=== PATIENT | female | born 1945 | race Caucasian/White ===

== ENCOUNTER 2016-10-24 16:41 | Emergency (ER) | payer MEDICARE, MEDICAID ==
--- NOTE | 2016-10-24 16:59 | ED Physician Chart ---
Chief Complaint/HPI - Patient Information Date Seen:: 10/24/16 Time Seen:: 16:49 Chief Complaint:: weakness History of Present Illness:: 71-year-old female from assisted living facility with acute, constant, moderate to severe, generalized weakness. Has associated mechanical fall about 2 hours prior to arrival to the ER. Unknown if she hit her head. Limited history as patient has underlying dementia and is a poor historian History provided by EMS Allergies:: Allergies Allergy/AdvReac Type Severity Reaction Status Date / Time MDX SULFA (sulfonamide) Allergy Verified 02/10/15 14:28 [SULFA (sulfonamide)] Historian:: EMS Review:: Nurse's Note Reviewed, EMS run form Reviewed Review of Systems - Review of Systems Other: Complete system review otherwise unremarkable except as noted in history of present illness. Past Medical History - Past Medical History Past Medical History: DM, Asthma/COPD, Dyslipidemia, Seizures, Dementia Family History: None Social History: Non Smoker, No Alcohol, No Drug Use, Care Facility Surgical History: None Psychiatricy History: None Medication: None Family Medical History - Family Member Mother History Unknown: Yes Physical Exam - Physical Examination Other:: INITIAL VITAL SIGNS: Reviewed by me GENERAL: Alert and interactive but demented. No acute distress HEAD: Head is normocephalic and atraumatic EYES: EOMI. PERRL. No scleral icterus. No conjunctival injection ENT: Moist mucous membranes. NECK: Supple. No masses. Full range of motion RESPIRATORY: No tachypnea. Clear breath sounds bilaterally. No wheezing, rales, or rhonchi CV: Regular rate and rhythm. No murmurs, rubs, or gallops ABDOMEN: Soft, non-distended, non-tender. No guarding. No rebound. No masses. EXTREMITIES: No deformity. No cyanosis. No edema. SKIN: Warm and dry. No obvious rashes. NEUROLOGIC: Alert and oriented. Face is symmetric. Speech is normal. Moves all extremities equally. Motor and sensory distally intact. Labs/Radiology/EKG Results - Lab Results Results: Lab Results 10/24/16 10/24/16 10/24/16 Range/Units 17:10 17:10 17:10 WBC 6.4 (4.8-10.8) Th/cmm RBC 4.22 (3.80-5.20) Mil/cmm Hgb 13.0 D (11.7-16.1) gm/dL Hct 38.3 D (35.0-45.0) % MCV 90.7 (81-100) fl MCH 30.8 (27.0-31.0) pg MCHC Differential 34.0 (28.0-36.0) pg RDW 12.3 (11.5-20.0) % Plt Count 173 (150-400) Th/cmm MPV 8.5 fl Neutrophils % 62.6 (40.0-80.0) % Lymphocytes % 27.5 (20.0-50.0) % Monocytes % 8.9 (2.0-10.0) % Eosinophils % 0.7 (0.0-5.0) % Basophils % 0.3 (0.0-2.0) % Sodium 136 (136-145) mEq/L Potassium 5.2 H (3.5-5.1) mEq/L Chloride 104 (98-107) mEq/L Carbon Dioxide 28.5 (21.0-31.0) mEq/L Anion Gap 8.7 (7.0-16.0) BUN 36 H (7-25) mg/dL Creatinine 1.2 (0.6-1.2) mg/dL Est GFR ( Amer) TNP Est GFR (Non-Af Amer) TNP BUN/Creatinine Ratio 30.0 Glucose 109 H (70-105) mg/dL Whole Bld Lactic Acid 0.72 (0.60-1.99) mmol/L Calcium 10.2 (8.6-10.3) mg/dL Total Bilirubin 0.5 (0.3-1.0) mg/dL AST 16 (13-39) U/L ALT 15 (7-52) U/L Alkaline Phosphatase 70 (34-104) U/L Creatine Kinase 55 (30-223) U/L Total Protein 7.5 (6.0-8.3) gm/dL Albumin 4.3 (3.7-5.3) gm/dL Globulin 3.2 gm/dL Albumin/Globulin Ratio 1.3 (1.0-1.8) - Radiology Results Results: Single AP VIEW Portable Chest X-ray was interpreted independently and contemporaneously by Tiffany Jackman MD: No cardiomegaly Normal mediastinum Chronic chronic changes bilateral lower lobes No pneumothorax No soft tissue or bony abnormalities CT head without contrast per radiology NAD - EKG Interpretations Comments:: 12-lead EKG Interpretation by Tiffany Jackman MD: Normal Sinus Rhythm with ventricular rate of 66 beats per minute Normal axis Normal intervals No acute ST or T wave changes. No obvious STEMI ED Septic Shock - . Is Septic Shock (SBP<90, OR Lactate>4 mmol\L) present?: No Reassessment (Disposition) - Reassessment Reassessment:: Blood pressure was noted to be elevated over 120/80. There were no signs of hypertension. Discussed the findings with the patient and recommended that the patient follow up with the primary care physician regarding the elevated blood pressure. The patient had mechanical fall generalized weakness. She appears to be slightly dehydrated. Received IV hydration. Symptoms did improve. Imaging essentially unremarkable. Discussed case with admitting physician. After long conversation a good understanding vitamin physician, patient will be discharged back to her assisted living facility where she can follow up with her primary care physician within one to 2 days. Patient appears to understand and agree with the plan. Patient does have acute UTI most likely this is the cause of the weakness. Discussed with primary care physician who advised to prescribed Cipro 250 mg by mouth twice a day 5 days. Gave her first dose here in the ER. Daughter/DPOA now at bedside and she will drive the patient back to nursing facility. Reassessment Condition:: Improved - Diagnosis Diagnosis:: Acute Generalized weakness due to acute urinary tract infection with hematuria Acute Mechanical fall Acute Closed head injury Acute Dehydration, moderate Elevated blood pressure without diagnosis hypertension that - Aftercare/Follow up Instructions Aftercare/Follow-Up Instructions:: Counseled pt regarding lab results/diagnosis & need follow up, Refer to Discharge Instructions - Patient Disposition Discharge/Transfer:: Home Time:: 19:20 Condition at Disposition:: Improved ED Discharge Plan - Patient Disposition Admit/Discharge/Transfer: PT DISCHARGED HOME Condition at Disposition: Improved Instructions: Urinary Tract Infection
[2016-10-24 17:42] LABS: % BASOPHILS 0.3 % (0.0-2.0); % EOSINOPHILS 0.7 % (0.0-5.0); % LYMPHOCYTES 27.5 % (20.0-50.0); % MONOCYTES 8.9 % (2.0-10.0); % NEUTROPHILS 62.6 % (40.0-80.0); MEAN CELL VOLUME 90.7 fl (81-100); MEAN CORPUSCULAR HEMOGLOBIN 30.8 pg (27.0-31.0); MEAN PLATELET VOLUME 8.5 fl; PLATELET COUNT 173 Th/cmm (150-400); RED BLOOD COUNT 4.22 Mil/cmm (3.80-5.20); RED CELL DISTRIBUTION WIDTH 12.3 % (11.5-20.0); WHITE BLOOD COUNT 6.4 Th/cmm (4.8-10.8)
[2016-10-24 17:44] LABS: HEMATOCRIT 38.3 % (35.0-45.0)
[2016-10-24 17:49] LABS: INR 1.02 (0.5-1.4); PROTHROMBIN TIME (TEST) 10.6 SECONDS (9.5-11.5)
[2016-10-24] MEDS: Sodium Chloride 0.9% 1,000 ML IV ONE (17:54)
[2016-10-24 17:56] LABS: ALB/GLOB RATIO 1.3 (1.0-1.8); ALKALINE PHOSPHATASE 70 U/L (34-104); ANION GAP 8.7 (7.0-16.0); BILIRUBIN,TOTAL 0.5 mg/dL (0.3-1.0); BUN - UREA NITROGEN 36 mg/dL (7-25); CALCIUM SERUM 10.2 mg/dL (8.6-10.3); CARBON DIOXIDE 28.5 mEq/L (21.0-31.0); CHLORIDE 104 mEq/L (98-107); CREATININE - SERUM 1.2 mg/dL (0.6-1.2); GLUCOSE 109 mg/dL (70-105); POTASSIUM SERUM 5.2 mEq/L (3.5-5.1); SGOT 16 U/L (13-39); SGPT/ALT 15 U/L (7-52); SODIUM SERUM 136 mEq/L (136-145)
[2016-10-24 19:12] LABS: URINE COLOR YELLOW
[2016-10-24 19:13] LABS: URINE BILIRUBIN NEGATIVE (NEGATIVE); URINE BLOOD MODERATE (NEGATIVE); URINE GLUCOSE (UA) NEGATIVE (NEGATIVE); URINE KETONE NEGATIVE (NEGATIVE); URINE PH 5.5; URINE PROTEIN 30 mg/dL (NEGATIVE); URINE UROBILINOGEN 0.2 E.U./dL (0.2 - 1.0)
[2016-10-24 19:16] LABS: URINE EPITHELIAL CELLS FEW /lpf (FEW); URINE WBC >100 /hpf (0-5)
[2016-10-24 19:17] LABS: URINE BACTERIA MODERATE /hpf (NONE SEEN)
--- NOTE | 2016-10-25 09:22 | Diagnostic Imaging Report ---
CHEST X-RAY: AP view INDICATION: pain COMPARISON: Chest x-ray 02/10/2015 FINDINGS: Chronic interstitial lung changes are seen in the focal consolidation or effusions. Heart size normal. Atherosclerosis is noted. Degenerative changes of the spine are noted. There is evidence of old fracture of the left humerus. IMPRESSION: Chronic lung changes of probable COPD. No focal consolidation identified. Atherosclerotic vascular disease.
--- NOTE | 2016-10-25 10:38 | Diagnostic Imaging Report ---
Head CT without intravenous contrast Indication: Fall, headache Comparison: Head CT on 04/03/2015 Technique: Axial images were obtained from the vertex to the skull base without IV contrast. Coronal reconstructions were made. Total DLP: 551, CTDI29 FINDINGS: Images of the brain obtained without contrast demonstrate no evidence of an acute hemorrhage. Mild atrophy is noted. Diffuse white matter disease is seen with redemonstration of multifocal lacunar infarcts of the bilateral basal ganglia regions as seen on previous examination. The ventricles and basal cisterns are patent. No mass effect or midline shift. Atherosclerotic vascular disease is noted. There is no evidence of a skull fracture or focal soft tissue swelling. Old nasal fractures are again noted. There is mucosal thickening of the paranasal sinuses. IMPRESSION: No evidence of an acute intracranial hemorrhage. Diffuse white matter disease and multiple chronic appearing bilateral lacunar infarcts as seen on prior exam. Mild atrophy. Atherosclerotic vascular disease. Old nasal fractures as seen on prior exam.
== END 2016-10-24 19:35 | disposition home or self-care (01) ==
LOC: ER 16:41
DX: S09.90XA Unspecified injury of head, initial encounter (principal); E86.0 Dehydration; R03.0 Elevated blood-pressure reading, without diagnosis of hypertension; N39.0 Urinary tract infection, site not specified; R31.9 Hematuria, unspecified; J45.909 Unspecified asthma, uncomplicated; J44.9 Chronic obstructive pulmonary disease, unspecified; E78.5 Hyperlipidemia, unspecified; E11.9 Type 2 diabetes mellitus without complications; Z88.2 Allergy status to sulfonamides; W19.XXXA Unspecified fall, initial encounter; Y93.89 Activity, other specified; Y92.89 Other specified places as the place of occurrence of the external cause; Y99.8 Other external cause status
CPT/HCPCS: 36415-UA; 70450-TC; 71010-TC; 80053-TC; 81001-TC; 82550-TC; 83605; 85025-TC; 85610-TC; 85730-TC; 87086-90; 93005; J7030; Z7610

== ENCOUNTER 2017-05-23 16:09 | Inpatient (IN) | payer MEDICARE, MEDICAID ==
--- NOTE | 2017-05-23 16:42 | ED Physician Chart ---
ED Chief Complaint/HPI - Patient Information Date Seen:: 05/23/17 Time Seen:: 16:25 Chief Complaint:: Syncope History of Present Illness:: onset x 3 hours of syncope resulting in a fall; no injuries; + weakness; no report of H/As, neck pain, C/P, SOB, cough, Abd. Pain, A/N/V/D/C, fever, chills , or urinary s/s Allergies:: Allergies Allergy/AdvReac Type Severity Reaction Status Date / Time Sulfa (Sulfonamide Allergy Verified 10/24/16 16:58 Antibiotics) Vitals:: Vital Signs - 8 hr 05/23/17 16:26 Temp 97.5 F HR 70 RR 18 BP 138/63 O2 Sat % 93 Historian:: Patient, EMS Review:: Nurse's Note Reviewed, EMS run form Reviewed, Transfer documents Reviewed ED Review of Systems - Review of Systems General/Constitutional: Fever, No chills, No weight loss, Weakness, No diaphoresis, No edema, No loss of appetite Skin: No skin lesions, No rash, No bruising Head: No headache, No light-headedness Eyes: No loss of vision, No pain, No diplopia ENT: No earache, No nasal drainage, No sore throat, No tinnitus Neck: No neck pain, No swelling, No thyromegaly, No stiffness, No mass noted Cardio Vascular: No chest pain, No palpitations, No PND, No orthopnea, No edema Pulmonary: SOB, Cough, No sputum, Wheezing GI: No nausea, No vomiting, No diarrhea, No pain, No melena, No hematochezia, No constipation, No hematemesis G/U: No dysuria, No frequency, No hematuria [employer] Supervisor: No vaginal discharge, No abnormal vaginal bleed, No contraction Musculoskeletal: No bone or joint pain, No back pain, No muscle pain Endocrine: Polyuria, Polydipsia Psychiatric: No prior psych history, No depression, No anxiety, No suicidal ideation Hematopoietic: No bruising, No lymphadenopathy Allergic/Immuno: No urticaria, No angioedema Neurological: Syncope, No focal symptoms, Weakness, No paresthesia, No headache , Seizure, Dizziness, Confusion, Vertigo ED Past Medical History - Past Medical History Obtainable: Yes Past Medical History: HTN, DM, CAD, CHF, Dyslipidemia, Seizures Family History: Heart disease, Diabetes Melitus, HTN Social History: Non Smoker, No Alcohol, No Drug Use, Single, Care Facility Surgical History: None Psychiatricy History: Dementia Medication: Reviewed Family Medical History - Family Member Mother History Unknown: Yes Hx Family Cancer: No Hx Family Hypertension: No Hx Family Stroke: No Hx Family Diabetes: No Hx Family Dementia: No Hx Family AIDS: No Hx Family COPD: No Hx Family Psychiatric Problems: No ED Physical Exam - Physical Examination General/Constitutional: Awake, Well-developed, well-nourished, Alert, No distress, GCS 15, Non-toxic appearing, Ambulatory Head: Atraumatic Eyes: Lids, conjuctiva normal, PERRL, EOMI Skin: Nl inspection, No rash, No skin lesions, No ecchymosis, Well hydrated, No lymphadenopathy ENMT: External ears, nose nl, TM canals nl, Nasal exam nl, Lips, teeth, gums nl , Oropharynx nl, Tonsils nl Neck: Nontender, Full ROM w/o pain, No JVD, No nuchal rigidity, No bruit, No mass, No stridor Respiratory: Nl effort/Exclusion Other Respiratory comments:: Lungs: + Rales, Rhonchi, and Wheezes Cardio Vascular: RRR, No murmur, gallop, rubs, NL S1 S2 GI: No tenderness/rebounding/guarding, No organomegaly, No hernia, Normal BS's, Nondistended, No mass/bruits, No McBurney tenderness : No CVA tenderness Extremities: No tenderness or effusion, Full ROM, normal strength in all extremities, No edema, Normal digits & nails Neuro/Psych: Alert/oriented, DTR's symmetric, Normal sensory exam, Normal motor strength, Judgement/insight normal, Mood normal, Normal gait, No focal deficits Misc: Normal back, No paraspinal tenderness ED Labs/Radiology/EKG Results - Lab Results Comments:: Na+: 133; BUN: 23; U/A: + Leukocytes - Radiology Results Comments:: CXR: + Infiltrate - EKG Interpretations Rate & Rhythm: NSR Comments:: non-specific st-t changes ED Septic Shock - . Is Septic Shock (SBP<90, OR Lactate>4 mmol\L) present?: No - <6hrs of presentation: Vital Signs: Vital Signs - 8 hr 05/23/17 16:26 Temp 97.5 F HR 70 RR 18 BP 138/63 O2 Sat % 93 ED Reassessment (Disposition) - Reassessment Reassessment Condition:: Improved - Diagnosis Diagnosis:: Anemia; Sepsis; PNA; UTI; Hyponatremia; Dehydration; Syncope; S/P Fall - Aftercare/Follow up Instructions Aftercare/Follow-Up Instructions:: Counseled pt regarding lab results/diagnosis & need follow up, Counseled pt & family regarding lab results/diagnosis & need follow up - Patient Disposition Discharge/Transfer:: Acute Care w/in this hosp Accepting Physician:: Dr. White Time Called:: 1929 Time Responded:: 21:00 Admitted to:: Telemetry Spoke to:: Dr. White Admitting Medical Physician:: Dr. White Condition at Disposition:: Stable, Improved ED Discharge Plan - Patient Disposition Admit/Discharge/Transfer: Acute Care w/in this hosp
[2017-05-23] MEDS ORDERED: Levofloxacin 500mg/100mL 500 MG/100 ML BAG IV ONE ×2 (16:45→18:08)
[2017-05-23 17:06] LABS: % BASOPHILS 0.9 % (0.0-2.0); % EOSINOPHILS 1.2 % (0.0-5.0); % MONOCYTES 7.8 % (2.0-10.0); % NEUTROPHILS 60.1 % (40.0-80.0); HEMATOCRIT 34.7 % (41.0-60); HEMOGLOBIN 11.4 gm/dL (12-16); MEAN CELL VOLUME 95.6 fl (81-100); MEAN CORPUSCULAR HEMOGLOBIN 31.3 pg (27.0-31.0); MEAN CORPUSCULAR HGB CONC 32.7 pg (28.0-36.0); MEAN PLATELET VOLUME 7.9 fl; NEUTROPHILE ABSOLUTE 3.1 Th/cmm (1.8-8.0); RED BLOOD COUNT 3.64 Mil/cmm (3.80-5.20); RED CELL DISTRIBUTION WIDTH 14.4 % (11.5-20.0); WHITE BLOOD COUNT 5.2 Th/cmm (4.8-10.8)
[2017-05-23 17:07] LABS: PLATELET COUNT 226 Th/cmm (150-400)
[2017-05-23 17:33] LABS: ALB/GLOB RATIO 1.3 (1.0-1.8); ALKALINE PHOSPHATASE 77 U/L (34-104); ANION GAP 9.7 (7.0-16.0); BILIRUBIN,TOTAL 0.3 mg/dL (0.3-1.0); BUN - UREA NITROGEN 23 mg/dL (7-25); BUN/CREATININE RATIO 25.6; CALCIUM SERUM 9.3 mg/dL (8.6-10.3); CARBON DIOXIDE 26.6 mEq/L (21.0-31.0); CHLORIDE 101 mEq/L (98-107); CHOLESTEROL 156 mg/dL (<200); CREATININE - SERUM 0.9 mg/dL (0.6-1.2); GLUCOSE 134 mg/dL (70-105); POTASSIUM SERUM 4.3 mEq/L (3.5-5.1); SGOT 15 U/L (13-39); SGPT/ALT 8 U/L (7-52); SODIUM SERUM 133 mEq/L (136-145); TRIGLYCERIDES 199 mg/dL (<150)
[2017-05-23 17:49] LABS: INR 0.96 (0.5-1.4)
[2017-05-23 18:57] LABS: URINE BILIRUBIN NEGATIVE (NEGATIVE); URINE BLOOD TRACE (NEGATIVE); URINE GLUCOSE (UA) NEGATIVE (NEGATIVE); URINE KETONE NEGATIVE (NEGATIVE); URINE PH 5.5 (4.6 - 8.0); URINE PROTEIN NEGATIVE (NEGATIVE); URINE UROBILINOGEN 0.2 E.U./dL (0.2 - 1.0)
[2017-05-23 19:22] LABS: URINE COLOR YELLOW
[2017-05-23 19:23] LABS: URINE BACTERIA NONE SEEN /hpf (NONE SEEN); URINE EPITHELIAL CELLS FEW /lpf (FEW); URINE RBC 0-2 /hpf (0-5)
[2017-05-24 05:01] LABS: % EOSINOPHILS 1.9 % (0.0-5.0); % LYMPHOCYTES 31.9 % (20.0-50.0); % MONOCYTES 9.6 % (2.0-10.0); % NEUTROPHILS 55.6 % (40.0-80.0); HEMOGLOBIN 10.2 gm/dL (12-16); MEAN CELL VOLUME 94.2 fl (81-100); MEAN CORPUSCULAR HEMOGLOBIN 31.6 pg (27.0-31.0); MEAN CORPUSCULAR HGB CONC 33.5 pg (28.0-36.0); NEUTROPHILE ABSOLUTE 2.2 Th/cmm (1.8-8.0); PLATELET COUNT 213 Th/cmm (150-400); RED BLOOD COUNT 3.24 Mil/cmm (3.80-5.20); RED CELL DISTRIBUTION WIDTH 14.2 % (11.5-20.0)
[2017-05-24 05:07] LABS: HEMATOCRIT 30.5 % (41.0-60)
[2017-05-24 05:22] LABS: ALB/GLOB RATIO 1.4 (1.0-1.8); ALKALINE PHOSPHATASE 68 U/L (34-104); ANION GAP 8.7 (7.0-16.0); BILIRUBIN,TOTAL 0.3 mg/dL (0.3-1.0); BUN - UREA NITROGEN 20 mg/dL (7-25); CALCIUM SERUM 9.2 mg/dL (8.6-10.3); CARBON DIOXIDE 29.4 mEq/L (21.0-31.0); CHLORIDE 105 mEq/L (98-107); CREATININE - SERUM 0.8 mg/dL (0.6-1.2); GLUCOSE 102 mg/dL (70-105); MAGNESIUM 1.7 mg/dL (1.9-2.7); POTASSIUM SERUM 4.1 mEq/L (3.5-5.1); SGOT 12 U/L (13-39); SGPT/ALT 8 U/L (7-52); SODIUM SERUM 139 mEq/L (136-145)
[2017-05-24] MEDS: Sodium Chloride 0.9% 1,000 ML IV SCH (06:36)
[2017-05-24] MEDS: INSULIN ASPART SLIDING SCALE 100 UNITS/ML UNIT SUBQ SCH ×4 (06:50→21:08)
[2017-05-24] MEDS: Albuterol/Ipratropium Neb 3 ML AERS HHN SCH ×4 (07:10→19:58)
--- NOTE | 2017-05-24 07:32 | Diagnostic Imaging Report ---
CHEST X-RAY: AP view INDICATION: pain COMPARISON: 10/24/2016 FINDINGS: Chronic lung changes are seen. No focal consolidation or effusions. Heart size is normal. Atherosclerosis is noted. Degenerative changes of the spine are noted. Old left humeral fracture is noted. IMPRESSION: Chronic lung changes and possible COPD. No focal consolidation identified. Atherosclerotic vascular disease.
--- NOTE | 2017-05-24 07:46 | Diagnostic Imaging Report ---
Head CT without intravenous contrast Indication: Syncope Comparison: 10/24/2016 Technique: Axial images were obtained from the vertex to the skull base without IV contrast. Coronal reconstructions were made. Total DLP: 617, CTDI34 FINDINGS: Images of the brain obtained without contrast demonstrate no evidence of an acute hemorrhage. Atrophy is noted. Diffuse supratentorial white matter disease is noted. Low-attenuation changes of the right occipital region are noted with developing areas of encephalomalacia likely due to chronic appearing infarct in this region. The ventricles and basal cisterns are patent. Old bilateral basal ganglia infarcts are noted. No mass effect or midline shift. No evidence of a skull fracture or focal soft tissue swelling. Atherosclerosis is noted. The visualized paranasal sinuses are clear. IMPRESSION: No evidence of acute intracranial hemorrhage. Low attenuation changes of the right occipital region likely due to chronic infarct. Areas of encephalomalacia also seen in this region Bilateral lacunar basal ganglia infarcts. Diffuse supratentorial white matter disease which is nonspecific and may be due to chronic microvessel ischemia. Atrophy Atherosclerotic vascular disease.
--- NOTE | 2017-05-24 08:28 | Diagnostic Imaging Report ---
CHEST X-RAY: AP view INDICATION: Pneumonia COMPARISON: 05/23/2017 FINDINGS: Chronic lung changes are seen with no focal consolidation or pleural effusions. Heart size normal. Atherosclerosis is noted. Old left humeral fracture is noted. IMPRESSION: Chronic lung changes with no focal consolidation identified.
[2017-05-24] MEDS ORDERED: Non-Formulary Item 1 EA (Fluticasone/Salmeterol [Advair 250-50 Diskus] 1 PUFF) INH SCH (09:45)
[2017-05-24] MEDS ORDERED: Non-Formulary Item 1 EA (Cetirizine Hcl [Zyrtec] 10 MG) PO SCH (09:45)
[2017-05-24] MEDS: Ferrous Sulfate 325 MG TAB PO SCH ×2 (10:19→16:31)
[2017-05-24] MEDS ORDERED: Ipratropium Neb 0.5 mg/2.5 mL UD HHN SCH (11:00)
[2017-05-24] MEDS ORDERED: Probiotic Screen MC PRN (11:45)
--- NOTE | 2017-05-24 12:29 | History & Physical ---
ADMIT DATE: CHIEF COMPLAINT: Weakness, acute on chronic debility, failure to thrive. HISTORY OF PRESENT ILLNESS: A 71-year-old lady who resides at [facility] with history significant for advanced dementia, seizures, type 2 diabetes, history of CHF, peripheral vascular disease, neuropathy, hypercholesterolemia, chronic smoker, COPD, who has had multiple falls in the past, was evaluated by Dr. Griffiths yesterday and given her weakness and possible dehydration, was transferred to the ER last night. Pertinent findings on admission include sodium of 133 and UA suggestive of UTI. CT of the head showed no evidence of acute intracranial hemorrhage. There were changes on the right occipital region likely due to chronic infarct. Bilateral lacunar basal ganglia infarcts were noted. There is also diffuse supratentorial white matter disease and atrophy. Chest x- ray showed chronic lung changes with possible COPD, no evidence of focal consolidations. The patient has been admitted to the medical floor for further management and care. The patient is somewhat of a poor historian. She denies any cough, fever, chills, any headaches, or changes in vision. She does admit to some weakness, which is somewhat chronic and when I asked her about p.o. intake, she states that she is not fully eating the facility's food because she does not like it. PAST MEDICAL HISTORY: As noted above. PAST SURGICAL HISTORY: None. FAMILY HISTORY: Noncontributory to this admission. SOCIAL HISTORY: She is a smoker. She smokes about a pack a day and she has been doing that for about 30 years. No ETOH. She lives at [facility]. ALLERGIES: Allergic to Sulfa. OUTPATIENT MEDICATIONS: Aspirin 81 daily, Plavix 75 daily, Keppra 750 daily, valsartan 320 daily, Glucophage 500 mg every day, gabapentin 300 mg b.i.d., Paxil 60 mg b.i.d. She takes [place] 10/325 q.i.d., simvastatin 20 at bedtime, tramadol 50 mg q.8 p.r.n. for pain, temazepam 50 mg at bedtime, DuoNeb q.4 p.r.n. for SOB. She is on sliding scale per protocol, takes Lantus 20 units q.p.m., and Amitiza 24 mcg q.a.m. and q.h.s. Tylenol No. 3 one tab q.i.d. REVIEW OF SYSTEMS: GENERAL: She does admit to some weakness and tiredness. No fever or chills. CARDIAC: No chest pain, palpitations. PULMONARY: She does have a chronic cough, but denies any shortness of breath. GASTROINTESTINAL: No bowel habit changes including no abdominal pain, nausea, vomiting, diarrhea, or constipation. GENITOURINARY: No bladder habit changes including no dysuria or hematuria. NEUROLOGIC: She denies any weakness or any recent falls. No syncope reported by the patient. PHYSICAL EXAMINATION: VITAL SIGNS: Temperature 97.6, pulse 78, respirations 18-20, BP 139/63, satting 92% on room air. GENERAL: Well-developed, thin female who appears to be somewhat lethargic. She is very forgetful. HEAD AND NECK: Normocephalic, atraumatic. Pupils are reactive to light. Extraocular movements are intact. Oropharynx is clear. She does have dry mucous membranes. NECK: There is no JVD or LAD. CARDIOVASCULAR: Regular rate and rhythm without any murmurs. LUNGS: Decreased breath sounds bilaterally. There is some mild wheezing and crackles noted bilaterally. ABDOMEN: Soft, supple, nontender, nondistended, normoactive bowel sounds. LOWER EXTREMITIES: There is no pedal edema. LABORATORY DATA: White count 5.2, H and H 11/34 with a platelet count of 226. INR of 0.96. Sodium 133, potassium 4.3, glucose 134, otherwise chemistry was within normal limits. Lactic acid 1.42. LFTs were within normal limits. Troponins were negative x 1 set. BNP 59, albumin 3.8, triglycerides 199, cholesterol 156, LDL 63. UA shows small leukocyte esterase, otherwise within normal limits. DIAGNOSTICS: Please refer to the HPI. ASSESSMENT: 1. Acute on chronic debility. 2. Failure to thrive with poor oral intake. 3. Chronic obstructive pulmonary disease with exacerbation. 4. Rule out bronchitis versus early pneumonia. 5. History of type 2 diabetes. 6. History of seizures. 7. History of peripheral vascular disease. 8. History of peripheral neuropathy. 9. History of chronic debility with multiple falls. PLAN: The patient has been admitted to the medical/surgical floor for further management and care. The patient has been placed on IV fluids, IV antibiotics namely Levaquin and we will also be placed on IV steroids given her COPD. She will be kept on her regular medications except for the [place] and Tylenol No. 3. We will continue to monitor labs on a daily basis and we will ask for a repeat x-ray in the morning. PT also has been asked for an evaluation. Sputum C and S also will be collected and the patient also has been placed on pulmonary toilet i.e., DuoNeb q.4 hours while awake and p.r.n. [facility]# [id number] MTDD
[2017-05-24] MEDS: methylPREDNISolone SS 40 mg Vial IVP SCH ×2 (13:33→21:10)
[2017-05-24] MEDS: Levofloxacin 500mg/100mL 500 MG/100 ML BAG IV SCH (17:07)
[2017-05-24] MEDS ORDERED: Levofloxacin 500mg/100mL 500 MG/100 ML BAG IV SCH (18:00)
[2017-05-24] MEDS: Budesonide 0.5 Mg/2 mL Ud HHN SCH (20:11)
[2017-05-25 06:24] LABS: ANION GAP 6.9 (7.0-16.0); BUN - UREA NITROGEN 17 mg/dL (7-25); BUN/CREATININE RATIO 21.3; CALCIUM SERUM 8.9 mg/dL (8.6-10.3); CARBON DIOXIDE 31.3 mEq/L (21.0-31.0); CHLORIDE 105 mEq/L (98-107); CREATININE - SERUM 0.8 mg/dL (0.6-1.2); GLUCOSE 179 mg/dL (70-105); MAGNESIUM 1.7 mg/dL (1.9-2.7); POTASSIUM SERUM 4.2 mEq/L (3.5-5.1); SODIUM SERUM 139 mEq/L (136-145)
[2017-05-25] MEDS: methylPREDNISolone SS 40 mg Vial IVP SCH ×3 (06:26→20:07)
[2017-05-25] MEDS: INSULIN ASPART SLIDING SCALE 100 UNITS/ML UNIT SUBQ SCH ×4 (06:35→20:14)
[2017-05-25] MEDS: Albuterol/Ipratropium Neb 3 ML AERS HHN SCH ×4 (07:04→19:30)
[2017-05-25] MEDS: Budesonide 0.5 Mg/2 mL Ud HHN SCH ×2 (07:06→19:31)
[2017-05-25 07:33] LABS: HEMOGLOBIN 10.1 gm/dL (12-16); RED BLOOD COUNT 3.19 Mil/cmm (3.80-5.20)
[2017-05-25 07:34] LABS: HEMATOCRIT 30.3 % (41.0-60); MEAN CORPUSCULAR HEMOGLOBIN 31.7 pg (27.0-31.0); MEAN CORPUSCULAR HGB CONC 33.4 pg (28.0-36.0); MEAN PLATELET VOLUME 8.1 fl; PLATELET COUNT 215 Th/cmm (150-400); RED CELL DISTRIBUTION WIDTH 14.2 % (11.5-20.0)
[2017-05-25 07:37] LABS: WHITE BLOOD COUNT 3.8 Th/cmm (4.8-10.8)
[2017-05-25 07:38] LABS: NEUTROPHILS 78 % (40-80); TOTAL CELLS COUNTED 100
[2017-05-25] MEDS: Ferrous Sulfate 325 MG TAB PO SCH ×2 (08:28→18:16)
[2017-05-25] MEDS: Lactobacillus Rhamnosus 10 Billion CFU Capsule PO SCH (08:28)
[2017-05-25] MEDS ORDERED: Mag Sulfate 2gm/50mL Premix 2 GM/50 ML BAG IV ONE (09:59)
[2017-05-25] MEDS: Sodium Chloride 0.9% 1,000 ML IV SCH (14:19)
[2017-05-25] MEDS: Levofloxacin 500mg/100mL 500 MG/100 ML BAG IV SCH (18:16)
[2017-05-26] MEDS: methylPREDNISolone SS 40 mg Vial IVP SCH ×3 (05:46→23:20)
[2017-05-26 06:35] LABS: % EOSINOPHILS 0.1 % (0.0-5.0); % LYMPHOCYTES 9.5 % (20.0-50.0); % MONOCYTES 4.9 % (2.0-10.0); % NEUTROPHILS 85.5 % (40.0-80.0); HEMATOCRIT 29.1 % (41.0-60); HEMOGLOBIN 9.6 gm/dL (12-16); MEAN CELL VOLUME 95.1 fl (81-100); MEAN CORPUSCULAR HEMOGLOBIN 31.5 pg (27.0-31.0); MEAN CORPUSCULAR HGB CONC 33.2 pg (28.0-36.0); MEAN PLATELET VOLUME 8.3 fl; NEUTROPHILE ABSOLUTE 4.5 Th/cmm (1.8-8.0); PLATELET COUNT 202 Th/cmm (150-400); RED BLOOD COUNT 3.06 Mil/cmm (3.80-5.20); RED CELL DISTRIBUTION WIDTH 14.4 % (11.5-20.0)
[2017-05-26] MEDS: INSULIN ASPART SLIDING SCALE 100 UNITS/ML UNIT SUBQ SCH ×4 (06:43→23:12)
[2017-05-26 06:53] LABS: ANION GAP 8.5 (7.0-16.0); BUN - UREA NITROGEN 19 mg/dL (7-25); BUN/CREATININE RATIO 23.8; CALCIUM SERUM 8.9 mg/dL (8.6-10.3); CARBON DIOXIDE 29.6 mEq/L (21.0-31.0); CHLORIDE 106 mEq/L (98-107); CREATININE - SERUM 0.8 mg/dL (0.6-1.2); GLUCOSE 292 mg/dL (70-105); POTASSIUM SERUM 4.1 mEq/L (3.5-5.1); SODIUM SERUM 140 mEq/L (136-145)
[2017-05-26] MEDS: Albuterol/Ipratropium Neb 3 ML AERS HHN SCH ×4 (07:05→18:53)
[2017-05-26] MEDS: Budesonide 0.5 Mg/2 mL Ud HHN SCH ×2 (07:05→18:53)
[2017-05-26 07:07] LABS: WHITE BLOOD COUNT 5.3 Th/cmm (4.8-10.8)
[2017-05-26] MEDS: Ferrous Sulfate 325 MG TAB PO SCH ×2 (08:34→16:41)
[2017-05-26] MEDS: Lactobacillus Rhamnosus 10 Billion CFU Capsule PO SCH (08:34)
--- NOTE | 2017-05-26 09:00 | Diagnostic Imaging Report ---
Portable chest x-ray HISTORY: Shortness of breath Compared with prior exam of May 24, 2017, there remains accentuation of the interstitial lung markings. However, no acute focal processes are seen. Atherosclerotic calcification noted in the aorta. IMPRESSION: 1. No acute focal pulmonary processes
[2017-05-26] MEDS: Levofloxacin 500mg/100mL 500 MG/100 ML BAG IV SCH (17:39)
[2017-05-27] MEDS: methylPREDNISolone SS 40 mg Vial IVP SCH ×3 (04:52→20:31)
[2017-05-27 05:17] LABS: HEMATOCRIT 30.6 % (41.0-60); HEMOGLOBIN 10.1 gm/dL (12-16); MEAN CELL VOLUME 95.4 fl (81-100); MEAN CORPUSCULAR HEMOGLOBIN 31.4 pg (27.0-31.0); MEAN CORPUSCULAR HGB CONC 32.9 pg (28.0-36.0); MEAN PLATELET VOLUME 8.3 fl; PLATELET COUNT 193 Th/cmm (150-400); RED BLOOD COUNT 3.21 Mil/cmm (3.80-5.20); RED CELL DISTRIBUTION WIDTH 14.5 % (11.5-20.0); WHITE BLOOD COUNT 4.8 Th/cmm (4.8-10.8)
[2017-05-27 05:41] LABS: ANION GAP 9.4 (7.0-16.0); BUN - UREA NITROGEN 24 mg/dL (7-25); CARBON DIOXIDE 30.8 mEq/L (21.0-31.0); CHLORIDE 104 mEq/L (98-107); GLUCOSE 278 mg/dL (70-105); POTASSIUM SERUM 4.2 mEq/L (3.5-5.1); SODIUM SERUM 140 mEq/L (136-145)
[2017-05-27] MEDS: INSULIN ASPART SLIDING SCALE 100 UNITS/ML UNIT SUBQ SCH ×4 (06:37→20:34)
[2017-05-27] MEDS: Albuterol/Ipratropium Neb 3 ML AERS HHN SCH ×5 (07:20→19:13)
[2017-05-27] MEDS: Budesonide 0.5 Mg/2 mL Ud HHN SCH ×2 (07:20→19:14)
[2017-05-27] MEDS: Lactobacillus Rhamnosus 10 Billion CFU Capsule PO SCH (08:41)
[2017-05-27] MEDS: Ferrous Sulfate 325 MG TAB PO SCH ×2 (08:41→16:31)
[2017-05-27] MEDS: cefTRIAXone 1 GM in Sodium Chloride 0.9% 50 ML IV SCH (15:59)
[2017-05-28] MEDS: methylPREDNISolone SS 40 mg Vial IVP SCH (05:12)
[2017-05-28] MEDS: INSULIN ASPART SLIDING SCALE 100 UNITS/ML UNIT SUBQ SCH ×2 (06:39→12:00)
[2017-05-28] MEDS: Albuterol/Ipratropium Neb 3 ML AERS HHN SCH ×3 (06:57→14:35)
[2017-05-28] MEDS: Budesonide 0.5 Mg/2 mL Ud HHN SCH (06:57)
[2017-05-28] MEDS: Lactobacillus Rhamnosus 10 Billion CFU Capsule PO SCH (08:32)
[2017-05-28] MEDS: Ferrous Sulfate 325 MG TAB PO SCH (08:32)
[2017-05-28] MEDS: cefTRIAXone 1 GM in Sodium Chloride 0.9% 50 ML IV SCH (14:27)
--- NOTE | 2017-05-28 20:02 | Discharge Summary ---
DATE OF DISCHARGE: 05/28/2017 ADMITTING DIAGNOSES: 1. Acute on chronic debility. 2. Failure to thrive with poor p.o. intake. 3. Chronic obstructive pulmonary disease with exacerbation. 4. Rule out bronchitis versus pneumonia. SECONDARY DIAGNOSES: Include; 1. Chronic debility with history of multiple falls. 2. Type 2 diabetes. 3. History of seizure disorder. 4. History of peripheral vascular disease. 5. History of peripheral neuropathy. 6. Dementia. 7. Chronic anemia. 8. History of chronic cerebrovascular accidents. DISCHARGE DIAGNOSES: 1. Acute debility, improved. 2. Escherichia coli urinary tract infection. 3. Chronic obstructive pulmonary disease with exacerbation, improved. CONSULTANTS: There were no consultants used during this admission. MAJOR PROCEDURES: There was a head CT done on admission showing no evidence of acute intracranial hemorrhage. There were low attenuation changes of the right occipital region, likely due to chronic infarct. There were also bilateral lacunar basal ganglia infarcts, diffuse supratentorial white matter disease, which is nonspecific and may be due to chronic microvessel ischemia and there was atrophy. DISCHARGE MEDICATIONS: DuoNeb q.4 hours while awake and p.r.n., Pulmicort 0.5 b.i.d., Rocephin 1 gram daily x 7 more days, Klonopin 0.5 every day p.r.n. for anxiety, docusate sodium 100 mg every day, iron sulfate 225 b.i.d., gabapentin 100 mg b.i.d., insulin sliding scale per protocol, Claritin 10 mg every day, prednisone taper, Remeron 30 mg at bedtime, Bactroban ointment apply to nares b.i.d. for 5 more days, Compazine 10 mg q.8 p.r.n. for nausea; and Restoril 15 mg at bedtime p.r.n. for insomnia. BRIEF HOSPITAL COURSE: A 71-year-old female who resides at [facility] with medical history significant for dementia, seizures, type 2 diabetes, peripheral vascular disease, neuropathy, chronic smoker/chronic obstructive pulmonary disease who in the past has had episodes of acute debility with periods of poor p.o. intake and frequent falling presented to the ER with poor p.o. intake and clinical dehydration. Pertinent findings on admission included sodium of 133 and UA consistent with a UTI. Clinically, she appeared to be in COPD exacerbation with possible bronchitis versus early pneumonia. She was admitted to the medical floor and placed on IV fluids, IV antibiotics and IV steroids. She also was placed on pulmonary toilet and received physical therapy. She did well throughout her hospital stay with improvement of her electrolytes (sodium on 05/27/2017 was noted to be 140 and she also ruled out with troponins). Her appetite was noted to be stable (improved) since admission and now the patient is agreeable to be transferred [facility] for further management and care. CONDITION ON DISCHARGE: Stable. DISPOSITION: The patient will be transferred to [facility] for physical therapy and rehabilitation and IV antibiotics. JOB# [id number] [facility]INE
== END 2017-05-28 15:15 | DRG 871 ==
LOC: ER 16:09 → MSI 21:00
PROVIDERS: ADMIT Internal Medicine; ATTEND Internal Medicine
DX: A41.9 Sepsis, unspecified organism (principal); J18.9 Pneumonia, unspecified organism; I11.0 Hypertensive heart disease with heart failure; I50.9 Heart failure, unspecified; F03.90 Unspecified dementia, unspecified severity, without behavioral disturbance, psychotic disturbance, mood disturbance, and anxiety; E11.51 Type 2 diabetes mellitus with diabetic peripheral angiopathy without gangrene; E11.42 Type 2 diabetes mellitus with diabetic polyneuropathy; J44.1 Chronic obstructive pulmonary disease with (acute) exacerbation; N39.0 Urinary tract infection, site not specified; J44.0 Chronic obstructive pulmonary disease with (acute) lower respiratory infection; E87.1 Hypo-osmolality and hyponatremia; R62.7 Adult failure to thrive; G40.909 Epilepsy, unspecified, not intractable, without status epilepticus; B96.20 Unspecified Escherichia coli [E. coli] as the cause of diseases classified elsewhere; E78.00 Pure hypercholesterolemia, unspecified; F17.210 Nicotine dependence, cigarettes, uncomplicated; I25.10 Atherosclerotic heart disease of native coronary artery without angina pectoris; D64.9 Anemia, unspecified; E86.0 Dehydration; W18.30XA Fall on same level, unspecified, initial encounter; Y93.89 Activity, other specified; Y92.89 Other specified places as the place of occurrence of the external cause; Y99.8 Other external cause status; Z86.73 Personal history of transient ischemic attack (TIA), and cerebral infarction without residual deficits; Z88.2 Allergy status to sulfonamides; Z83.3 Family history of diabetes mellitus; Z82.49 Family history of ischemic heart disease and other diseases of the circulatory system
CPT/HCPCS: 36415-UA; 70450-TC; 71010-TC; 80048-TC; 80053-TC; 80061-TC; 81001-TC; 82550-TC; 82948-90; 83036-90; 83605; 83735-TC; 83880-TC; 84134-90; 84484-TC; 85007-TC; 85025-TC; 85027-TC; 85610-TC; 85730-TC; 87070; 87086-90; 90779; 93005; 94760; 97530; J0696; J1815; J1956; J2920; J3475; J7030; X3904; Z7610